=== PATIENT | female | born 1995 | race Caucasian/White ===

== ENCOUNTER 2017-02-23 21:15 | Emergency (ER) | payer SELFPAY ==
[2017-02-23] MEDS ORDERED: Amoxicillin/Clavulanate TAB* 875 MG PO ONE (21:50)
--- NOTE | 2017-02-25 08:58 | UC ---
Bite Injury/Animal HPI - HPI Summary HPI Summary: Patient presents to with cat bite to the right index finger. She obtained the bite from a contained cat at a [employer] office where she is employed. The cat was being hospitalized for an unknown reason. Rabies status is unknown, but per patient, likely d/t the cat being a house cat only with an baler operator. She obtained 2 small supercicial lacerations and 1 small puncture wound. She has had bites in the past from her job. She notes minimal blood loss. 2/10 pain. Denies drainage, erythema or pus from the area. The bite occurred 1 hour ago. She denies health problems and does not take medications. - History of Current Complaint Chief Complaint: UCBiteInjury Stated Complaint: CAT BITE Time Seen by Provider: 02/23/17 21:25 Hx Obtained From: Patient Hx Last Menstrual Period: no menses, IUD ?: No Severity Currently: Mild Severity Initially: Mild Pain Intensity: 2 Pain Scale Used: 0-10 Numeric Onset/Duration: Sudden Onset Type of Bite: Animal Has Animal Been Immunized?: Unknown Character: Puncture, Abrasion/Laceration Aggravating Factor(s): Nothing Alleviating Factor(s): Nothing Hx of Bite: Unprovoked Animal Available for Observation: Yes Animal Control Notified: Yes - Risk Factors Infection/Sepsis Risk Factors: Negative - Allergies/Home Medications Allergies/Adverse Reactions: Allergies Allergy/AdvReac Type Severity Reaction Status Date / Time No Known Allergies Allergy Verified 02/23/17 21:29 Home Medications: Home Medications FLUoxetine CAP* [Prozac CAP*] 40 mg PO DAILY 02/23/17 [History Confirmed ] PMH/Surg Hx/FS Hx/Imm Hx Previously Healthy: Yes Endocrine History Of: Denies: Diabetes, Thyroid Disease Cardiovascular History Of: Denies: Cardiac Disorders, Hypertension Respiratory History Of: Denies: COPD, Asthma GI/ History Of: Denies: Ulcer - Surgical History Surgical History: None - Family History Known Family History: Positive: Unknown - Social History Occupation: Employed Full-time Lives: With Family Alcohol Use: Occasionally Substance Use Type: None Smoking Status (MU): Former Smoker Have You Smoked in the Last Year: No Review of Systems Constitutional: Negative Skin: Other - puncture wound with small lacerations Eyes: Negative Respiratory: Negative Cardiovascular: Negative Motor: Negative Neurovascular: Negative Musculoskeletal: Negative Neurological: Negative All Other Systems Reviewed And Are Negative: Yes Physical Exam Triage Information Reviewed: Yes Appearance: Well-Appearing, No Pain Distress, Well-Nourished Vital Signs: Initial Vital Signs Temp 98.2 F 02/23/17 21:22 Pulse 64 02/23/17 21:22 Resp 18 02/23/17 21:22 BP 115/77 02/23/17 21:22 Pulse Ox 97 02/23/17 21:22 Vital Signs Reviewed: Yes Eye Exam: Normal Eyes: Positive: Conjunctiva Clear Neck exam: Normal Neck: Positive: No Lymphadenopathy Respiratory Exam: Normal Respiratory: Positive: Chest non-tender Cardiovascular Exam: Normal Cardiovascular: Positive: RRR Musculoskeletal Exam: Normal Musculoskeletal: Positive: Strength Intact Neurological Exam: Normal Psychological Exam: Normal Psychological: Positive: Age Appropriate Behavior Skin: Positive: Other - 1 small superficial puncture wound and 2 small .5-1cm lacerations to the index finger of the left hand. minimal bleeding. 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 1 small superficial puncture wound and 2 small .5-1cm lacerations to the index finger of the left hand. minimal bleeding. Patients wound was irrigated and cleaned. Bandage applied. RN called health department. Augmentin given in UC and prescription given. Will call patient if anything further needs to be done. Patient OK with plan and OK for discharge. Nothing to sign for workmans comp at this time. - Differential Dx/Diagnosis Differential Diagnosis/HQI/PQRI: Cellulitis, Fracture, Laceration, Puncture Provider Diagnoses: Cat bite Discharge - Discharge Plan Condition: Stable Disposition: HOME Prescriptions: Amoxicillin/Clavulanate TAB* [Augmentin TAB 875*] 875 mg PO BID #10 tab Patient Education Materials: Animal Bite (ED) Referrals: Mayte Diaz MD [Primary Care Provider] - Additional Instructions: FOLLOW UP NEEDED IF YOU DEVELOP ANY REDNESS, PAIN, RED STREAKING UP THE ARM, DRAINAGE FROM THE AREA OR YOU DEVELOP A FEVER, COME BACK TO UC RIGHT AWAY.
== END 2017-02-23 22:01 | disposition home or self-care (01) ==
LOC: UCEAST 21:15
DX: S61.231A Puncture wound without foreign body of left index finger without damage to nail, initial encounter (principal); S61.211A Laceration without foreign body of left index finger without damage to nail, initial encounter; W55.01XA Bitten by cat, initial encounter; Y93.K9 Activity, other involving animal care; Y92.89 Other specified places as the place of occurrence of the external cause; Y99.0 Civilian activity done for income or pay; Z87.891 Personal history of nicotine dependence
CPT/HCPCS: 99203; A9270-GY; G0463

== ENCOUNTER 2017-03-03 17:45 | Emergency (ER) | payer OTHER ==
[2017-03-03] MEDS ORDERED: Ondansetron INJ* 2 MG/ML VIAL IV ONE (20:22)
[2017-03-03] MEDS ORDERED: NS 0.9% 1000 ML* 1,000 ML IV ONE (20:22)
[2017-03-03 21:00] LABS: Hematocrit 40 % (35-47); Hemoglobin 13.5 g/dl (12.0-16.0); Mean Corpuscular HGB Conc 34 g/dl (31-36); Mean Corpuscular Hemoglobin 29 pg (27-31); Mean Corpuscular Volume 85 fL (80-97); Mean Platelet Volume 8 um3 (7.4-10.4); Red Blood Count 4.66 10^6/ul (4.0-5.4); Red Cell Distribution Width 13 % (10.5-15); White Blood Count 13.7 10^3/ul (3.5-10.8)
[2017-03-03 21:15] LABS: ALT 23 U/L (7-52); Albumin 4.2 g/dL (3.2-5.2); Alkaline Phosphatase 56 U/L (34-104); BUN/Creatinine Ratio 17.7 (8-20); Blood Urea Nitrogen 11 mg/dL (6-24); C Reactive Protein 83.53 mg/L (< 5.00); CO2 Carbon Dioxide 21 mmol/L (22-32); Calcium 9.2 mg/dL (8.6-10.3); Chloride 101 mmol/L (101-111); EGFR African American 153.4 (>60); EGFR Non-African American 119.3 (>60); Globulin 3.3 g/dL (2-4); Glucose 114 mg/dL (70-100); Lipase 10 U/L (11.0-82.0); Sodium 132 mmol/L (133-145); Total Protein 7.5 g/dL (6.4-8.9)
[2017-03-03 21:21] LABS: AST 30 U/L (13-39); Anion Gap 10 mmol/L (2-11); Potassium 3.3 mmol/L (3.5-5.0)
[2017-03-03 22:10] LABS: Urine Bacteria 1+ (Absent); Urine Bilirubin Negative (Negative); Urine Glucose Negative (Negative); Urine Nitrite Negative (Negative)
[2017-03-03] MEDS ORDERED: Ondansetron ODT TAB* 4 MG PO ONE (22:11)
--- NOTE | 2017-03-03 22:12 | ED ---
Abdominal Pain/Female - HPI Summary HPI Summary: 21 female presents with complaints of cold like symptoms, nausea and vomiting that began last night and early this morning around 1am. Patient began having body aches, coughing, nasal congestion yesterday. She woke up this morning around 1am, 03/03/17 with nausea and vomiting. States she has vomited approximately 6-7 times and has been unable to keep any food or drinks down. Denies diarrhea or constipation. LVM was this morning and normal. No blood in stool or emesis. Denies known fever. Denies c/p, SOB, difficulty breathing, sore throat and ear pain. Admits to abdominal discomfort throughout abdomen, diffuse and denies sharp localized pain. Denies PMHx. No medication prior to arrival. Has been traveling, just got home from [place], ate fast food yesterday from [employer]. Just stopped taking augmentin for a cat bite. was given it 1 week ago for 5 days however patient did not take the medication correctly as directed and skipped doses. Has not taken in 2 days. Denies any signs of infection at previous bite site. - History of Current Complaint Chief Complaint: EDAbdPain Stated Complaint: VOMITING/SORE THROAT/COUGHING Time Seen by Provider: 03/03/17 20:11 Hx Obtained From: Patient Hx Last Menstrual Period: no menses, IUD ?: No Onset/Duration: Sudden Onset, Lasting Days - 1 Timing: Constant Severity Initially: Mild Severity Currently: Mild Pain Intensity: 4 Pain Scale Used: 0-10 Numeric Location: Diffuse Radiates: No Character: Cramping Aggravating Factor(s): Nothing Alleviating Factor(s): Vomiting Associated Signs and Symptoms: Positive: Cough, Nausea, Vomiting. Negative: Back Pain, Constipation, Blood in Stool, Urinary Symptoms, Decreased Appetite, Vaginal Bleeding, Vaginal Discharge Allergies/Adverse Reactions: Allergies Allergy/AdvReac Type Severity Reaction Status Date / Time No Known Allergies Allergy Verified 02/23/17 21:29 PMH/Surg Hx/FS Hx/Imm Hx Endocrine/Hematology History: Denies: Hx Diabetes, Hx Thyroid Disease Cardiovascular History: Denies: Hx Hypertension Respiratory History: Denies: Hx Asthma, Hx Chronic Obstructive Pulmonary Disease (COPD) GI History: Denies: Hx Ulcer - Surgical History Surgery Procedure, Year, and Place: none - Immunization History Immunizations Up to Date: Yes Infectious Disease History: No Infectious Disease History: Denies: Hx Clostridium Difficile, Hx Hepatitis, Hx Human Immunodeficiency Virus (HIV), Hx of Known/Suspected MRSA, Hx Shingles, Hx Tuberculosis, Hx Known/ Suspected VRE, Hx Known/Suspected VRSA, History Other Infectious Disease, Traveled Outside the [place] in Last 30 Days - Family History Known Family History: Positive: Unknown - Social History Alcohol Use: Occasionally Substance Use Type: Reports: None Smoking Status (MU): Former Smoker Have You Smoked in the Last Year: No Review of Systems Constitutional: Negative Eyes: Negative Positive: Sore Throat - has resolved, Nasal Discharge Cardiovascular: Negative Positive: Cough Positive: Abdominal Pain, Vomiting, Nausea Musculoskeletal: Negative Skin: Negative Neurological: Negative All Other Systems Reviewed And Are Negative: Yes Physical Exam Triage Information Reviewed: Yes Vital Signs On Initial Exam: Initial Vitals Temp Pulse Resp BP Pulse Ox 98.8 F 94 20 118/69 100 03/03/17 18:06 03/03/17 18:06 03/03/17 18:06 03/03/17 18:06 03/03/17 18:06 afebrile Vital Signs Reviewed: Yes Appearance: Positive: No Pain Distress, Well-Nourished, Ill-Appearing, Thin Skin: Positive: Warm, Skin Color Reflects Adequate Perfusion, Dry, Other - previous cat bite appears normal without erythema, edema or discharge. healing nicely Head/Face: Positive: Normal Head/Face Inspection Eyes: Positive: Normal, Conjunctiva Clear ENT: Positive: Normal ENT inspection, Hearing grossly normal, Pharynx normal, Nasal congestion, TM red - bilateral. Negative: Nasal drainage, Tonsillar swelling, Tonsillar exudate, Trismus, Muffled/hoarse voice Dental: Negative: Cervical Lymphadenopathy Neck: Positive: Supple, Nontender, No Lymphadenopathy. Negative: Nuchal Rigidity Respiratory/Lung Sounds: Positive: Clear to Auscultation, Breath Sounds Present. Negative: Decreased Breath Sounds, Rales, Rhonchi, Wheezes Cardiovascular: Positive: Normal, RRR, Pulses are Symmetrical in both Upper and Lower Extremities Abdomen Description: Positive: Nontender - minimally uncomfortable diffusely on palpation, No Organomegaly, Soft. Negative: Bruit, CVA Tenderness (R), CVA Tenderness (L), Distended, Guarding, Hernia @, McBurney's Point Tenderness, Peritoneal Signs, Pulsatile Mass Bowel Sounds: Positive: Present Pelvic Exam: Positive: external exam normal - per patient Musculoskeletal: Positive: Normal, Strength/ROM Intact. Negative: Limited @, Interruption @ Neurological: Positive: Normal, Sensory/Motor Intact, Alert, Oriented to Person Place, Time - [place] Coma Scale Coma Scale Total: 15 Diagnostics - Vital Signs Vital Signs Temp Pulse Resp BP Pulse Ox 03/03/17 21:30 77 111/49 94 03/03/17 21:00 78 128/68 98 03/03/17 20:30 124/71 03/03/17 18:09 98.8 F 92 20 118/69 98 03/03/17 18:06 98.8 F 94 20 118/69 100 - Laboratory Lab Results: Lab Results 03/03/17 03/03/17 03/03/17 Range/Units 20:45 20:45 20:45 WBC 13.7 H (3.5-10.8) 10^3/ul RBC 4.66 (4.0-5.4) 10^6/ul Hgb 13.5 (12.0-16.0) g/dl Hct 40 (35-47) % MCV 85 (80-97) fL MCH 29 (27-31) pg MCHC 34 (31-36) g/dl RDW 13 (10.5-15) % Plt Count 165 (150-450) 10^3/ul MPV 8 (7.4-10.4) um3 Neut % (Auto) 94.4 H (38-83) % Lymph % (Auto) 2.6 L (25-47) % [place] % (Auto) 2.6 (1-9) % Eos % (Auto) 0 (0-6) % Baso % (Auto) 0.4 (0-2) % Absolute Neuts (auto) 12.9 H (1.5-7.7) 10^3/ul Absolute Lymphs (auto) 0.4 L (1.0-4.8) 10^3/ul Absolute Monos (auto) 0.4 (0-0.8) 10^3/ul Absolute Eos (auto) 0 (0-0.6) 10^3/ul Absolute Basos (auto) 0.1 (0-0.2) 10^3/ul Absolute Nucleated RBC 0 10^3/ul Nucleated RBC % 0 Sodium 132 L (133-145) mmol/L Potassium 3.3 L (3.5-5.0) mmol/L Chloride 101 (101-111) mmol/L Carbon Dioxide 21 L (22-32) mmol/L Anion Gap 10 (2-11) mmol/L BUN 11 (6-24) mg/dL Creatinine 0.62 (0.51-0.95) mg/dL Est GFR ( Amer) 153.4 (>60) Est GFR (Non-Af Amer) 119.3 (>60) BUN/Creatinine Ratio 17.7 (8-20) Glucose 114 H (70-100) mg/dL Lactic Acid 1.4 (0.5-2.0) mmol/L Calcium 9.2 (8.6-10.3) mg/dL Total Bilirubin 0.70 (0.2-1.0) mg/dL AST 30 (13-39) U/L ALT 23 (7-52) U/L Alkaline Phosphatase 56 (34-104) U/L C-Reactive Protein 83.53 H (< 5.00) mg/L Total Protein 7.5 (6.4-8.9) g/dL Albumin 4.2 (3.2-5.2) g/dL Globulin 3.3 (2-4) g/dL Albumin/Globulin Ratio 1.3 (1-3) Lipase 10 L (11.0-82.0) U/L Beta HCG, Quant < 0.60 mIU/mL Influenza A (Rapid) (Negative) Influenza B (Rapid) (Negative) 03/03/17 Range/Units 20:54 WBC (3.5-10.8) 10^3/ul RBC (4.0-5.4) 10^6/ul Hgb (12.0-16.0) g/dl Hct (35-47) % MCV (80-97) fL MCH (27-31) pg MCHC (31-36) g/dl RDW (10.5-15) % Plt Count (150-450) 10^3/ul MPV (7.4-10.4) um3 Neut % (Auto) (38-83) % Lymph % (Auto) (25-47) % [place] % (Auto) (1-9) % Eos % (Auto) (0-6) % Baso % (Auto) (0-2) % Absolute Neuts (auto) (1.5-7.7) 10^3/ul Absolute Lymphs (auto) (1.0-4.8) 10^3/ul Absolute Monos (auto) (0-0.8) 10^3/ul Absolute Eos (auto) (0-0.6) 10^3/ul Absolute Basos (auto) (0-0.2) 10^3/ul Absolute Nucleated RBC 10^3/ul Nucleated RBC % Sodium (133-145) mmol/L Potassium (3.5-5.0) mmol/L Chloride (101-111) mmol/L Carbon Dioxide (22-32) mmol/L Anion Gap (2-11) mmol/L BUN (6-24) mg/dL Creatinine (0.51-0.95) mg/dL Est GFR ( Amer) (>60) Est GFR (Non-Af Amer) (>60) BUN/Creatinine Ratio (8-20) Glucose (70-100) mg/dL Lactic Acid (0.5-2.0) mmol/L Calcium (8.6-10.3) mg/dL Total Bilirubin (0.2-1.0) mg/dL AST (13-39) U/L ALT (7-52) U/L Alkaline Phosphatase (34-104) U/L C-Reactive Protein (< 5.00) mg/L Total Protein (6.4-8.9) g/dL Albumin (3.2-5.2) g/dL Globulin (2-4) g/dL Albumin/Globulin Ratio (1-3) Lipase (11.0-82.0) U/L Beta HCG, Quant mIU/mL Influenza A (Rapid) Negative (Negative) Influenza B (Rapid) Negative (Negative) Result Diagrams: 03/03/17 20:45 03/03/17 20:45 Lab Statement: Any lab studies that have been ordered have been reviewed, and results considered in the medical decision making process. Re-Evaluation - Re-Evaluation First Eval Re-Evaluation Time: 21:00 Change: Improved - patient was feeling much better after zofran and fluids Second Eval Re-Evaluation Time: 22:00 Change: Improved - patient was still feeling much better, looked better and was ready to be d/c. updated on lab results and current treatment plan, patient agrees. Abdominal Pain Fem Course/Dx - Course Course Of Treatment: labs and U/A ordered. small increase in WBC and slightly dehydrated from vomiting. influenza cultures obtained and negative. due to PE findings and improvement of sore throat, strep culture not obtained. educated if throat worsens to be re-evaluated for possible strep throat. given fluids and zofran. patient's symptoms had improved. Due to PE findings and HPI patient will be treated for a gastroenteritis. Given zofran to take at home as needed for nausea/vomiting. drink plenty of fluids. follow up with pp. ibuprofen for discomfort. discontinue use of augmentin. watch cat bite for signs of infection. flonase and claritin to help with nasal congestion/cough. aware of wrosening signs and symptoms to return immediatley for possible further imagining and evaluation. - Diagnoses Differential Diagnosis: Positive: Appendicitis, Gall Bladder Disease, Peptic Ulcer Disease, , Urinary Tract Infection, Other Provider Diagnoses: Gastroenteritis, Viral syndrome, Nausea & vomiting Discharge - Discharge Plan Condition: Stable Disposition: HOME Prescriptions: Ondansetron ODT TAB* [Zofran 4 MG Odt TAB*] 4 mg PO Q6H PRN #10 tab.odt PRN Reason: Nausea Patient Education Materials: Acute Nausea and Vomiting (ED), Gastroenteritis ( ED) Referrals: Mayte Diaz MD [Primary Care Provider] - Additional Instructions: Take prescribed zofran only as needed, as directed, for nausea. Drink plenty of fluids to avoid dehydration. Stick to a blank diet consisting of bananas, rice, applesauce and toast. Ibuprofen for pain and discomfort. Recommend over the counter flonase nasal spray and claritin for nasal congestion and cough. Follow up with primary care provider. If your symptoms worsen or new symptoms develop such as abdominal pain, profuse vomiting, unable to eat or drink, blood in stool or vomit, fever/chills, please seek medical attention promptly.
== END 2017-03-03 22:33 | disposition home or self-care (01) ==
LOC: ED 17:45
DX: K52.9 Noninfective gastroenteritis and colitis, unspecified (principal); B34.9 Viral infection, unspecified; R11.2 Nausea with vomiting, unspecified; R05 Cough; R06.02 Shortness of breath; Z87.891 Personal history of nicotine dependence; R10.9 Unspecified abdominal pain
CPT/HCPCS: 36415; 80053; 81003; 81015; 83605; 83690; 84702; 85025; 86140; 87086; 87502; 96374; 99282; A9270-GY; J2405

== ENCOUNTER 2023-06-19 13:45 | Inpatient (IN) ==
[2023-06-19 14:21] LABS: ABS Eosinophils 0.1 10^3/uL (0.0-0.5); ABS Lymphocytes 1.5 10^3/uL (1.0-4.8); ABS Monocytes 0.3 10^3/uL (0.0-0.9); ABS Neutrophils 6.8 10^3/uL (1.5-7.6); ABS Nucleated RBC 0.01 10^3/ul; Eosinophil % 1.1 %; Hematocrit 43.2 % (35-45); Lymphocyte % 16.7 %; Mean Corpuscular Hemoglobin 30.5 pg (27-33); Mean Corpuscular Hgb Conc 34.6 g/dL (31-36); Mean Platelet Volume 7.1 fL (7.5-11.2); Nucleated Red Blood Cells % 0.1 /100 WBC (0.0-0.4); Platelet Count 297 10^3/uL (150-450); Red Blood Count 4.91 10^6/uL (3.63-4.92); Red Cell Distribution Width 12.8 % (12-17); White Blood Count 8.7 10^3/uL (3.8-11.8)
[2023-06-19 14:39] LABS: Albumin 4.6 g/dL (3.2-5.2); Anion Gap 9 mmol/L (2-16); CO2 Carbon Dioxide 22 mmol/L (22-32); Calcium 9.4 mg/dL (8.6-10.3); Chloride 105 mmol/L (101-111); Potassium 3.9 mmol/L (3.5-5.0); Sodium 136 mmol/L (135-145)
[2023-06-19 14:45] LABS: ALT 15 U/L (7-52); AST 17 U/L (13-39); Albumin/Globulin Ratio 1.3 (1-3); Alkaline Phosphatase 60 U/L (35-149); Blood Urea Nitrogen 12 mg/dL (6-24); Creatinine, Serum 0.81 mg/dL (0.51-0.95); Globulin 3.6 g/dL (2-4); Glucose 128 mg/dL (70-100); Total Protein 8.2 g/dL (6.4-8.9); eGFR CKD-EPI 100.7 (>60)
[2023-06-19 15:01] LABS: Acetaminophen < 15 mcg/mL; Alcohol, S < 13 mg/dL (<13); Salicylate < 2.50 mg/dL (<30)
[2023-06-19 15:04] LABS: Urine Benzodiazepine Screen None Detected (None Detect); Urine Cannabinoids Screen Presumptive Positive (None Detect); Urine Opiates Screen None Detected (None Detect)
[2023-06-19 15:11] LABS: Urine Appearance Turbid; Urine Bilirubin Negative (Negative); Urine Blood Negative (Negative); Urine Color Yellow; Urine Glucose Negative (Negative); Urine Ketones 1+ (Negative); Urine Nitrite Negative (Negative); Urine Protein 1+(30 mg/dL) (Negative); Urine Specific Gravity 1.031 (1.002-1.030); Urine Urobilinogen Negative (Negative)
[2023-06-19 15:14] LABS: TSH Ultra Thyroid Stim Horm 2.14 mcIU/mL (0.34-5.60)
[2023-06-19 15:17] LABS: Urine Bacteria Absent (Absent); Urine Red Blood Cell Absent (Absent); Urine Squamous Epithelial Cell Present (Absent); Urine White Blood Cell Absent (Absent)
[2023-06-19] MEDS ORDERED: Al Hydrox/Mg Hydrox/Simet LIQ 30 ML UDC PO PRN (18:33)
[2023-06-19] MEDS: buPROPion SR 100 mg TAB.SR PO SCH (21:48)
[2023-06-19] MEDS: JUNEL FE PO SCH (21:50)
[2023-06-19] MEDS ORDERED: Nicotine Lozenge mini 2 MG LOZNG.MINI MT PRN (23:08)
[2023-06-20] MEDS: buPROPion SR 100 mg TAB.SR PO SCH (07:55)
[2023-06-20] MEDS: Venlafaxine XR 75 mg PO SCH ×2 (07:56→13:53)
[2023-06-20] MEDS: Nicotine PATCH 21 MG/24 HR PATCH TRANSDERM SCH (07:56)
[2023-06-20] MEDS: Vitamin THERAPEUTIC TAB PO SCH (07:56)
[2023-06-20] MEDS: Nicotine GUM 2MG FRUIT FLAVOR PO PRN (17:31)
[2023-06-20] MEDS: JUNEL FE PO SCH (21:02)
[2023-06-21] MEDS: Nicotine GUM 2MG FRUIT FLAVOR PO PRN ×2 (06:44→19:53)
[2023-06-21] MEDS: Nicotine PATCH 21 MG/24 HR PATCH TRANSDERM SCH ×2 (06:44→14:44)
[2023-06-21 08:25] LABS: HDL Cholesterol 61.2 mg/dL
[2023-06-21] MEDS: Vitamin THERAPEUTIC TAB PO SCH (09:38)
[2023-06-21] MEDS: Venlafaxine XR 75 mg PO SCH ×2 (09:38)
[2023-06-21] MEDS: JUNEL FE PO SCH (19:53)
[2023-06-22] MEDS: Vitamin THERAPEUTIC TAB PO SCH (08:36)
[2023-06-22] MEDS: Venlafaxine XR 75 mg PO SCH ×2 (08:36)
[2023-06-22] MEDS: Nicotine GUM 2MG FRUIT FLAVOR PO PRN (08:38)
[2023-06-22] MEDS: Nicotine PATCH 21 MG/24 HR PATCH TRANSDERM SCH (08:38)
[2023-06-22] MEDS: JUNEL FE PO SCH (20:07)
[2023-06-22 20:09] VITALS: BP 136/92
[2023-06-23] MEDS: Vitamin THERAPEUTIC TAB PO SCH (09:33)
[2023-06-23] MEDS: Venlafaxine XR 75 mg PO SCH ×2 (09:33→09:34)
[2023-06-23] MEDS: Nicotine PATCH 21 MG/24 HR PATCH TRANSDERM SCH (09:36)
[2023-06-23] MEDS: Nicotine GUM 2MG FRUIT FLAVOR PO PRN (10:47)
== END 2023-06-23 14:52 | disposition home or self-care (01) | DRG 752 ==
LOC: ED 13:45 → EDHOLD 13:45 → OBSVTOIN 17:00 → BSU 17:31
PROVIDERS: ADMIT Psychiatry & Neurology Psychiatry; ATTEND Psychiatry & Neurology Psychiatry

== ENCOUNTER 2024-02-16 07:20 | Observation (INO) ==
[2024-02-16] MEDS ORDERED: Chlorhexidine MOUTHWASH 0.12% 15 ML UDC ONE (07:48)
[2024-02-16] MEDS ORDERED: Famotidine IV 10 MG/ML 2 ml VIAL (20 mg) ONE (08:02)
[2024-02-16] MEDS ORDERED: ceFAZolin 2 GM PREMIX 2 GM/50 ML BAG ONE (08:02)
[2024-02-16 08:10] LABS: Rapid COVID-19 Molecular Undetected (Undetected)
[2024-02-16] MEDS ORDERED: Lidocaine 2% PF 5 ML VIAL ONE (08:25)
[2024-02-16] MEDS ORDERED: Midazolam 2 mg/2 ml VIAL 1 mg/ml 2 ml VIAL (2 mg) ONE (08:25)
[2024-02-16] MEDS ORDERED: Propofol 10 MG/ML 20 ML BTL ONE (08:25)
[2024-02-16] MEDS ORDERED: fentaNYL 250 mcg/5 ml 50 MCG/ML 5 ml VIAL (250 MCG) ONE (08:25)
[2024-02-16] MEDS ORDERED: Ondansetron 4 mg VIAL 2 MG/ML 2 ml VIAL ONE (08:25)
[2024-02-16] MEDS ORDERED: Dexamethasone IV 4 MG/ML VIAL 1 ml VIAL ONE (08:25)
[2024-02-16] MEDS ORDERED: Rocuronium 50 mg VIAL 10 mg/ml 5 ml VIAL (50 mg) ONE (08:25)
[2024-02-16] MEDS: Buffered Lidocaine 1% SYRIN 1 ml INTRADERM ONE (08:26)
[2024-02-16] MEDS: Famotidine IV 10 MG/ML 2 ml VIAL (20 mg) IV ONE (08:27)
[2024-02-16] MEDS: Lactated Ringers 1000 ml BAG 1,000 ML IV SCH ×2 (08:27→13:41)
[2024-02-16] MEDS ORDERED: Lidocaine 1% w EPI 1:100,000 MDV 20 ML VIAL ONE (09:08)
[2024-02-16] MEDS ORDERED: Thrombin 5,000 UNITS(BOVINE) for Ultrasound Guided Pseudoaneursym ONE (09:09)
[2024-02-16] MEDS ORDERED: ceFAZolin VIAL VIAL ONE (09:09)
[2024-02-16] MEDS ORDERED: Gelfoam Sponge SIZE 100 SPONGE ONE (09:09)
[2024-02-16] MEDS ORDERED: HYDROmorphone 1 MG/1 ML SYRINGE IV PRN (09:58)
[2024-02-16] MEDS ORDERED: Naloxone 0.4 mg VIAL 0.4 mg/ml 1 ml VIAL IV PRN (09:58)
[2024-02-16] MEDS ORDERED: KETAMINE HCL 10 MG/ML 20 ml VIAL (200 MG) ONE (10:01)
[2024-02-16] MEDS ORDERED: Phenylephrine 40 mcg/mL 10mL (400mcg) SYRINGE ONE (10:59)
[2024-02-16] MEDS ORDERED: Morphine 2 MG/ML SYRINGE IV PRN (11:34)
[2024-02-16] MEDS ORDERED: Ondansetron 4 mg VIAL 2 MG/ML 2 ml VIAL IV PRN (11:34)
[2024-02-16] MEDS ORDERED: Calcium Carb (TUMS) 500 mg CHEW TAB PO PRN (11:34)
[2024-02-16] MEDS ORDERED: Phenol 1.4% Throat Spray BTL MT PRN (11:34)
[2024-02-16] MEDS ORDERED: Senna TAB 8.6 mg TAB PO PRN (11:34)
[2024-02-16] MEDS ORDERED: Dextran 70/Hypromellose Tears Eye Drops 15 ml BTL (for Artificials Tears) BOTH EYES PRN (11:34)
[2024-02-16] MEDS ORDERED: fentaNYL 100 mcg/2 ml 50 MCG/ML VIAL ONE (11:42)
[2024-02-16] MEDS: fentaNYL 100 mcg/2 ml 50 MCG/ML VIAL IV PRN (11:46)
[2024-02-16] MEDS ORDERED: Albuterol HFA INHALER 8 gm MDI INH PRN (13:11)
[2024-02-16] MEDS: Nicotine PATCH 21 MG/24 HR PATCH TRANSDERM SCH (14:29)
[2024-02-16] MEDS: CMCS: Lamotrigine XR 300 mg TAB (NF) PO SCH (20:07)
[2024-02-16] MEDS: DULoxetine DR 30 mg CAP PO SCH (20:08)
[2024-02-17] MEDS: Venlafaxine XR 75 mg PO SCH (08:49)
[2024-02-17] MEDS: Benzocaine/Menthol LOZ MT PRN (08:49)
[2024-02-17 09:59] VITALS: BP 123/74
== END 2024-02-17 11:40 | disposition home or self-care (01) ==
LOC: OR 07:20 → SSU 07:20
PROVIDERS: ADMIT Neurological Surgery; ATTEND Neurological Surgery